=== PATIENT | male | born 1965 | race African-American/Black ===

== ENCOUNTER 2016-11-09 23:57 | Emergency (ER) | payer OTHER ==
[~2016-11-09] VITALS: Ht 188 cm; Wt 77.3 kg
[~2016-11-09 23:57] MED LIST: HYDR-3971 PO; ZOLP5 PO
[2016-11-10] MEDS ORDERED: IBUP-2070 PO (00:09)
[2016-11-10] MEDS ORDERED: KETOROLAC TROMETHAMINE 60 MG/2 ML VIAL IM ONE (02:00)
[2016-11-10 02:27] VITALS: BP 124/63
== END 2016-11-10 03:47 | disposition home or self-care (01) ==
LOC: EMS 23:58
DX: S39.012A Strain of muscle, fascia and tendon of lower back, initial encounter (principal); F17.210 Nicotine dependence, cigarettes, uncomplicated; V49.9XXA Car occupant (driver) (passenger) injured in unspecified traffic accident, initial encounter; Y93.89 Activity, other specified; Y92.89 Other specified places as the place of occurrence of the external cause; Y99.8 Other external cause status
CPT/HCPCS: 72131; 96372; 99284; J1885

== ENCOUNTER 2018-11-06 10:06 | Emergency (ER) | payer OTHER ==
[~2018-11-06] VITALS: Ht 188 cm; Wt 77.3 kg
[~2018-11-06 10:06] MED LIST changes: +IBUP-2070 PO; -ZOLP5 PO
[2018-11-06] MEDS ORDERED: LIDOCAINE 5% TRANSDERMAL PATCH TD ONE (11:45)
[2018-11-06 11:58] VITALS: BP 119/88
== END 2018-11-06 11:59 | disposition home or self-care (01) ==
LOC: EMS 10:09
DX: S46.812A Strain of other muscles, fascia and tendons at shoulder and upper arm level, left arm, initial encounter (principal); F17.210 Nicotine dependence, cigarettes, uncomplicated; W86.8XXA Exposure to other electric current, initial encounter; Y93.89 Activity, other specified; Y92.89 Other specified places as the place of occurrence of the external cause; Y99.8 Other external cause status
CPT/HCPCS: 99406

== ENCOUNTER 2019-04-22 21:39 | Emergency (ER) | payer OTHER ==
[~2019-04-22] VITALS: Ht 188 cm; Wt 79.2 kg
[2019-04-22] MEDS ORDERED: TETANUS/DIPHTHERIA TOXOID [ADULT] 0.5 ML VIAL IM ONE (21:45)
[2019-04-22] MEDS ORDERED: CeFAZolin SODIUM 500 MG in DEXTROSE 5%-WATER 50 ML IV ONE (21:45)
[2019-04-22 22:04] VITALS: BP 104/56
[2019-04-22] MEDS ORDERED: PERTUSS(ACELL),DIPH,TET VAC/PF 0.5 ML VIAL IM ONE (22:15)
[2019-04-22] MEDS ORDERED: CeFAZolin 1 GM/DEXTROSE 50 ML IV ONE (22:30)
== END 2019-04-22 22:20 | disposition short-term general hospital (02) ==
LOC: EMS 21:40
DX: S82.451B Displaced comminuted fracture of shaft of right fibula, initial encounter for open fracture type I or II (principal); S82.251B Displaced comminuted fracture of shaft of right tibia, initial encounter for open fracture type I or II; F17.210 Nicotine dependence, cigarettes, uncomplicated; W34.00XA Accidental discharge from unspecified firearms or gun, initial encounter; Z79.899 Other long term (current) drug therapy; Y93.89 Activity, other specified; Y92.89 Other specified places as the place of occurrence of the external cause; Y99.8 Other external cause status
CPT/HCPCS: 73590; 90471; 90715; 96365; 99291; J0690; 90714; J7060